=== PATIENT | female | born 1980 | race Hispanic/Latino ===

== ENCOUNTER 2021-12-12 09:45 | Inpatient (IN) | payer OTHER, SELFPAY ==
[2021-12-10 13:14] LABS: Hemoglobin 12.3 g/dL (12.0-15.5); Mean Corpuscular HGB CONC 34.4 g/dL (32.0-36.0); Mean Corpuscular Hemoglobin 30.1 pg (27.0-33.0); Mean Corpuscular Volume 87.5 fl (81.6-98.3); Mean Platelet Volume 11.7 fl (7.4-10.4); Platelet Count 192 10x3/uL (150-450); Red Blood Cell (RBC) Count 4.09 10x6/uL (3.90-5.03); White Blood Cell (WBC) Count 5.8 10x3/uL (3.5-10.5)
[2021-12-10 13:45] LABS: Hep B Surf Ag Non-Reactive S/CO (NonReactive); Syphilis Antibody Nonreactive (Nonreactive); Syphilis Antibody Index 0.04 S/CO (<1.00 Non-Reactive)
[2021-12-10 14:56] LABS: HBSAg Index 0.15 S/CO (0-0.99)
[2021-12-12] MEDS ORDERED: Ondansetron PF 4 MG/2 ML Vial IVP PRN ×2 (10:11→11:07)
[2021-12-12] MEDS ORDERED: Bicitra 30 ML UDCUP PO PRN (10:11)
[2021-12-12] MEDS ORDERED: Famotidine/PF 20 mg/2ml Vial SLOW IVP PRN (10:11)
[2021-12-12] MEDS ORDERED: ceFAZolin 2 GM/Dextrose 50 ML 2 GM in Premix Bag 1 BAG IVPB SCH (10:11)
[2021-12-12] MEDS ORDERED: hydrALAZINE 20 MG/ML VIAL SLOW IVP PRN (10:11)
[2021-12-12] MEDS ORDERED: Promethazine HCl 25 MG/ML VIAL IM PRN ×2 (10:11→11:07)
[2021-12-12 10:31] VITALS: BMI 34.2
[2021-12-12] MEDS: Lactated Ringer's 1,000 ML IV SCH ×2 (10:32→21:22)
[2021-12-12] MEDS ORDERED: Naloxone HCl 0.4 mg/ml Vial IV PRN (11:07)
[2021-12-12] MEDS ORDERED: diphenhydrAMINE 50 MG/ML VIAL IVP PRN (11:07)
[2021-12-12] MEDS ORDERED: Meperidine HCl/PF 25 MG/ML VIAL SLOW IVP PRN (11:07)
[2021-12-12] MEDS ORDERED: Promethazine HCl 25 MG SUPP PR PRN (11:07)
[2021-12-12] MEDS ORDERED: Ondansetron HCl/PF 4 MG/2 ML Vial IVP PRN (11:07)
[2021-12-12] MEDS ORDERED: Fentanyl 100 MCG/2 ML VIAL SLOW IVP PRN (11:07)
[2021-12-12] MEDS ORDERED: Naloxone HCl 0.4 mg/ml Vial IVP PRN ×2 (11:07)
[2021-12-12] MEDS ORDERED: Moisturizing Cream (Eucerin) 113 GM JAR TOP PRN (11:07)
[2021-12-12] MEDS ORDERED: Communication Order-Pharmacy FS SCH (11:15)
[2021-12-12] MEDS ORDERED: Ketorolac Tromethamine 30 MG/ML VIAL IVP SCH (11:15)
[2021-12-12] MEDS ORDERED: Ondansetron PF 4 MG/2 ML Vial ONE (11:23)
[2021-12-12] MEDS ORDERED: Ketorolac Tromethamine 30 MG/ML VIAL ONE (11:23)
[2021-12-12] MEDS ORDERED: Dexamethasone 4 mg/ml Vial ONE (11:23)
[2021-12-12] MEDS ORDERED: Morphine PF 10 MG/10 ML VIAL ONE (11:23)
[2021-12-12] MEDS ORDERED: Oxytocin 10 UNITS/ML VIAL ONE (11:23)
[2021-12-12] MEDS ORDERED: Tranexamic Acid 1,000 MG/10 ML VIAL ONE (14:10)
[2021-12-12] MEDS: Misoprostol 200 MCG TAB ONE ×2 (14:11→14:12)
[2021-12-12 15:22] LABS: #Monocytes 0.3 10x3/uL (0.0-1.1); #Neutrophils 5.8 10x3/uL (1.5-8.4); %Basophils 0.3 % (0.0-2.0); %Eosinophils 0.4 % (0.0-6.0); %Lymphocytes 13.4 % (18.0-47.0); %Monocytes 3.8 % (0.0-10.0); Hemoglobin 11.6 g/dL (12.0-15.5); Mean Corpuscular HGB CONC 33.3 g/dL (32.0-36.0); Mean Corpuscular Hemoglobin 29.7 pg (27.0-33.0); Mean Corpuscular Volume 89.2 fl (81.6-98.3); Mean Platelet Volume 10.8 fl (7.4-10.4); Platelet Count 165 10x3/uL (150-450); RBC Distribution Width 15.7 % (11.5-14.5); White Blood Cell (WBC) Count 7.2 10x3/uL (3.5-10.5)
[2021-12-12 15:37] LABS: Anion Gap 14 mmol/L (10-20); BUN (Urea Nitrogen) 8 mg/dL (7.0-18.7); Calc. Creatinine Clearance 185 mL/min (70-130); Carbon Dioxide 20 mmol/L (22-29); Chloride 104 mmol/L (98-107); Potassium 4.1 mmol/L (3.5-5.1); Sodium 134 mmol/L (136-145)
[2021-12-12 15:38] LABS: ALT (SGPT) 37 U/L (8-55); AST (SGOT) 35 U/L (5-34); Albumin 3.2 g/dL (3.5-5.0); Alkaline Phosphatase 150 U/L (40-110); Bilirubin, Total 0.5 mg/dL (0.2-1.2); Calcium 8.8 mg/dL (7.8-10.44); Globulin 2.8 g/dL (2.4-3.5); Glucose 81 mg/dL (70-105)
[2021-12-12] MEDS ORDERED: Methylergonovine 0.2 MG/ML VIAL ONE ×2 (16:34→16:39)
[2021-12-12] MEDS ORDERED: Methylergonovine 0.2 MG/ML VIAL IM SCH (16:45)
[2021-12-12] MEDS ORDERED: NS w/ Oxytocin 30 units 500 ML ONE (17:40)
[2021-12-12] MEDS ORDERED: Simethicone Chewable 80 MG TAB PO PRN (20:23)
[2021-12-12] MEDS ORDERED: Methylergonovine 0.2 MG/ML VIAL IM PRN (20:23)
[2021-12-12] MEDS ORDERED: Lanolin Ointment 7 GM TUBE TOP PRN (20:23)
[2021-12-12] MEDS ORDERED: Misoprostol 200 MCG TAB PR PRN (20:23)
[2021-12-12] MEDS ORDERED: Bisacodyl 10 MG SUPP PR PRN (20:23)
[2021-12-12] MEDS ORDERED: Boostrix 0.5 ML (Tdap) VIAL IM ONE (20:23)
[2021-12-12] MEDS ORDERED: NS w/ Oxytocin 30 units 500 ML IV SCH (21:00)
[2021-12-12] MEDS: Docusate 100 MG CAP PO SCH (21:22)
[2021-12-12] MEDS ORDERED: HYDROcodone/Acetaminophen 5/325 mg Tablet PO PRN (23:00)
[2021-12-12] MEDS: Ketorolac Tromethamine 30 MG/ML VIAL IVP PRN (23:38)
[2021-12-13 05:04] LABS: Hemoglobin 10.9 g/dL (12.0-15.5); Mean Corpuscular Hemoglobin 29.9 pg (27.0-33.0); Mean Corpuscular Volume 87.9 fl (81.6-98.3); Mean Platelet Volume 11.3 fl (7.4-10.4); Platelet Count 167 10x3/uL (150-450); RBC Distribution Width 15.3 % (11.5-14.5); Red Blood Cell (RBC) Count 3.65 10x6/uL (3.90-5.03); White Blood Cell (WBC) Count 8.4 10x3/uL (3.5-10.5)
[2021-12-13] MEDS: Lactated Ringer's 1,000 ML IV SCH ×3 (10:49→22:10)
[2021-12-13] MEDS: Ketorolac Tromethamine 30 MG/ML VIAL IVP PRN (11:27)
[2021-12-13] MEDS: Docusate 100 MG CAP PO SCH ×2 (11:28→21:27)
[2021-12-13] MEDS: HYDROcodone/Acetaminophen 5/325 mg Tablet PO PRN ×2 (19:30→23:47)
[2021-12-14] MEDS: HYDROcodone/Acetaminophen 5/325 mg Tablet PO PRN (10:02)
[2021-12-14] MEDS: Docusate 100 MG CAP PO SCH (10:05)
[2021-12-14 10:09] VITALS: BP 108/61; TEMP 98
== END 2021-12-14 14:55 | disposition home or self-care (01) | DRG 784 ==
LOC: CSHLD 09:45 → CSHPP 19:50
PROVIDERS: ADMIT Student in an Organized Health Care Education/Training Program; ATTEND Student in an Organized Health Care Education/Training Program
PROC: 10D00Z1 Extraction of Products of Conception, Low, Open Approach (ICD-10-PCS; principal; 2021-12-12)
PROC: 0UT70ZZ Resection of Bilateral Fallopian Tubes, Open Approach (ICD-10-PCS; 2021-12-12)
DX: O34.211 Maternal care for low transverse scar from previous cesarean delivery (principal); R71.0 Precipitous drop in hematocrit; Z79.899 Other long term (current) drug therapy; N73.6 Female pelvic peritoneal adhesions (postinfective); O99.892 Other specified diseases and conditions complicating childbirth; Z20.822 Contact with and (suspected) exposure to COVID-19; Z3A.39 39 weeks gestation of pregnancy; Z37.0 Single live birth; Q51.818 Other congenital malformations of uterus; O99.893 Other specified diseases and conditions complicating puerperium
CPT/HCPCS: 36415; 80053; 85025; 85027; 86780; 86850; 86900; 86901; 87340; 88302; J0690; J1100; J1885; J2210; J2274; J2405; J2590; J7120; S0028; U0003; U0005